=== PATIENT | female | born 1990 | race Caucasian/White ===

== ENCOUNTER 2019-02-10 10:56 | Emergency (ER) | payer BC, OTHER ==
[~2019-02-10] VITALS: Ht 175.3 cm; Wt 83.5 kg
--- OUTSIDE RECORDS SUMMARY | 2019-02-10 11:02 | XMS REPORT | Continuity of Care Document ---
Author Organization Unknown Address Unknown Allergies Active Description Code Type Severity Reaction Onset Reported/Identified Relationship to Patient Clinical Status Yes No known allergies Drug N/A N/A Medications There is no data. Problems Date Dx Coded Attending Type Code Diagnosis Diagnosed By 02/26/2014 VANDANA BECKHAM 623.5 NONINFECT VAG LEUKORRHEA Procedures Code [place] [address] VIET, DNA, DIR PROBE 02/26/2014 99662 NELSON VAG, DNA, DIR PROBE 02/26/2014 27529 TRICHOMONAS VAGIN, DIR PROBE 02/26/2014 Results Test Result Range BACT VAGINOSIS ITIS PANEL - 02/26/14 00:00 BVCAND NOT DETECTED NOT DETECTED BVGARD NOT DETECTED NOT DETECTED BVTRIC NOT DETECTED NOT DETECTED Encounters ACCT No. Visit Date/Time Discharge Status Pt. Type Provider Facility Loc./Unit Complaint [id number] 02/05/2019 13:55:31 02/05/2019 23:59:59 DIS Outpatient Kala Hoff [facility] [id number] 01/30/2019 17:56:50 02/02/2019 15:15:00 DIS Inpatient JO ANN ORDNOEZ [facility] R[facility] OB Induction [id number] 01/29/2019 14:15:00 01/29/2019 23:59:59 DIS Outpatient JO ANN ORDONEZ [facility] [id number] 01/29/2019 13:25:55 01/29/2019 14:15:00 DIS Outpatient JO ANN ORDONEZ [facility] OB Gestational Hypertension [id number] 01/24/2019 08:24:59 01/24/2019 23:59:59 DIS Outpatient VANDANA BECKHAM [facility] [id number] 01/22/2019 09:42:59 01/22/2019 23:59:59 DIS Outpatient JO ANN ORDONEZ [facility] [id number] 01/22/2019 09:15:57 01/22/2019 23:59:59 DIS Outpatient JO ANN ORDONEZ [facility] gest htn [id number] 01/15/2019 13:45:00 01/15/2019 23:59:59 DIS Outpatient Kavya Kala [facility] [id number] 01/15/2019 00:00:00 01/15/2019 23:59:59 CLS Outpatient JO ANN ORDONEZ [facility] [id number] 01/15/2019 12:55:13 01/15/2019 13:55:00 DIS Outpatient JO ANN ORDONEZ [facility] OB nst [id number] 01/08/2019 21:57:09 01/08/2019 23:59:59 CLS Outpatient JO ANN ORDONEZ [facility] OB NST [id number] 01/08/2019 15:42:45 01/08/2019 23:59:59 DIS Outpatient JO ANN ORDONEZ [facility] [id number] 01/08/2019 15:14:48 01/08/2019 23:59:59 DIS Outpatient JO ANN ORDONEZ [facility] RAD check growth [id number] 01/01/2019 13:15:00 01/01/2019 23:59:59 DIS Outpatient JO ANN ORDONEZ [facility] [id number] 01/01/2019 00:00:00 01/01/2019 23:59:59 CLS Outpatient JO ANN ORDONEZ [facility] [id number] 01/01/2019 12:21:03 01/01/2019 13:20:00 DIS Outpatient JO ANN ORDONEZ [facility] OB htn [id number] 12/25/2018 09:35:29 12/25/2018 23:59:59 DIS Outpatient JO ANN ORDONEZ [facility] [id number] 12/11/2018 10:13:45 12/11/2018 23:59:59 DIS Outpatient Kala Hoff [facility] [id number] 12/11/2018 09:48:03 12/11/2018 23:59:59 DIS Outpatient JO ANN ORDONEZ [facility] RAD check growth [id number] 11/28/2018 08:20:24 11/28/2018 23:59:59 DIS Outpatient BHAVANI VANDANA Hyatt [facility] lab [id number] 11/28/2018 08:19:25 11/28/2018 23:59:59 DIS Outpatient BHAVANI VANDANA Hyatt [facility] [id number] 11/20/2018 13:23:28 11/20/2018 23:59:59 DIS Outpatient JO ANN ORDONEZ [facility] [id number] 11/17/2018 07:56:59 11/17/2018 23:59:59 DIS Outpatient JO ANN ORDONEZ [facility] LAB Lab [id number] 11/13/2018 14:24:32 11/13/2018 23:59:59 DIS Outpatient JO ANN ORDONEZ [facility] [id number] 11/07/2018 14:53:55 11/07/2018 23:59:59 DIS Outpatient Brendan Andrea [facility] RAD soa; palpitations [id number] 11/06/2018 11:39:15 11/06/2018 23:59:59 DIS Outpatient Kala Hoff [facility] [id number] 10/30/2018 13:02:14 10/30/2018 23:59:59 CLS Preadmit Brendan Andrea [facility] REN CR palpitations [id number] 10/30/2018 12:48:23 10/30/2018 23:59:59 DIS Outpatient Brendan Andrea [facility] REN RT EKG / Holter Monitor [id number] 10/30/2018 10:21:05 10/30/2018 23:59:59 DIS Outpatient JO ANN ORDONEZ [facility] [id number] 10/30/2018 09:39:06 10/30/2018 23:59:59 DIS Outpatient JO ANN ORDONEZ [facility] finish survey [id number] 10/07/2018 12:41:27 10/07/2018 23:59:59 DIS Outpatient Kala Hoff [facility] [id number] 10/01/2018 13:19:55 10/01/2018 23:59:59 DIS Outpatient JO ANN ORDONEZ [facility] [id number] 10/01/2018 12:44:13 10/01/2018 23:59:59 DIS Outpatient JO ANN ORDONEZ [facility] RAD survey [id number] 09/03/2018 16:27:27 09/03/2018 23:59:59 DIS Outpatient JO ANN ORDONEZ [facility] [id number] 08/06/2018 15:59:24 08/06/2018 23:59:59 DIS Outpatient JO ANN ORDONEZ [facility] [id number] 07/22/2018 16:32:30 07/22/2018 23:59:59 DIS Outpatient VANDANA BECKHAM [facility] RAD check tones [id number] 07/22/2018 15:55:54 07/22/2018 23:59:59 DIS Outpatient VANDANA BECKHAM [facility] [id number] 07/10/2018 14:32:30 07/10/2018 23:59:59 DIS Outpatient Kala Hoff [facility] [id number] 07/10/2018 14:02:52 07/10/2018 23:59:59 DIS Outpatient Kala Hoff [facility] intake [id number] 01/14/2018 13:47:21 01/14/2018 23:59:59 DIS Outpatient JOSÉ LUISREJIY Lonnie [facility] [id number] 12/20/2017 16:29:15 12/20/2017 23:59:59 DIS Outpatient VANDANA BECKHAM [facility] lab [id number] 12/20/2017 16:00:00 12/20/2017 23:59:59 DIS Outpatient VANDANA BECKHAM [facility] [id number] 05/17/2017 08:02:42 05/17/2017 23:59:59 DIS Outpatient BENJAMIN CROFT [facility] [id number] 09/05/2016 15:24:45 09/05/2016 23:59:59 CLS Outpatient JO ANN ORDONEZ [facility] [id number] 02/26/2014 00:00:00 02/26/2014 00:00:00 DIS Outpatient VANDANA BECKHAM [facility] JOSÉ LUIS [id number] 04/29/2018 02:01:15 Document Registration [id number] 09/05/2016 15:38:47 Document Registration [id number] 08/16/2013 00:00:00 Document Registration
[2019-02-10 11:38] LABS: BACTERIA,URINE FEW /HPF; BILIRUBIN,URINE NEGATIVE (NEGATIVE); CLARITY,URINE CLEAR; COLOR,URINE RED; GLUCOSE, URINE (UA) NEGATIVE (NEGATIVE); KETONES,URINE NEGATIVE (NEGATIVE); LEUKOCYTE ESTERASE ,URINE 2+ (NEGATIVE); NITRITE,URINE NEGATIVE (NEGATIVE); PH,URINE 8.5 (5-9); PROTEIN,URINE NEGATIVE (NEGATIVE); UROBILINOGEN,URINE 0.2 MG/DL (NORMAL); WBC,URINE 25-50 /HPF
[2019-02-10 12:13] LABS: BILIRUBIN,URINE NEGATIVE (NEGATIVE); CLARITY,URINE CLEAR; COLOR,URINE YELLOW; GLUCOSE, URINE (UA) NEGATIVE (NEGATIVE); KETONES,URINE NEGATIVE (NEGATIVE); NITRITE,URINE NEGATIVE (NEGATIVE); PROTEIN,URINE NEGATIVE (NEGATIVE)
[2019-02-10 12:14] LABS: BACTERIA,URINE FEW /HPF; LEUKOCYTE ESTERASE ,URINE TRACE (NEGATIVE); UROBILINOGEN,URINE 0.2 MG/DL (NORMAL)
[2019-02-10] MEDS ORDERED: CEPH500T PO (12:38)
--- NOTE | 2019-02-10 12:38 | ED GU-Female ---
General Chief Complaint: - Urinary Stated Complaint: PT THINK SHE HAS UTI - JUST HAD BABY ON Nursing Triage Note: Patient arrived by private vehicle with significant other, with chief complaint of possible UTI and pelvic pain. Pt stated it started yesterday. Pt had a baby on the . She stated its in pelvic area. When asking if it kennedy she stated yes and hurts. Nursing Sepsis Screen: No Definite Risk History of Present Illness Date Seen by Provider: February 10, 2019 Time Seen by Provider: 12:45 Initial Comments This is a 29 y/o , approx 10 days post- from a uncomplicated vaginal delivery. Required Labetalol during but otherwise uncomplicated. Concerned about a UTI. Reports urinary urgency/frequency since yesterday. Has had UTIs before and this feels the same. Some vaginal bleeding that is improving. no abdominal pain. no fever, no nausea, no vomiting. Is . Allergies and Home Medications Allergies Coded Allergies: No Known Drug Allergies (Unverified , 02/10/19) Home Medications Cephalexin 500 Mg Tablet, 500 MG PO BID Prescribed by: JOJO CORNEJO on 02/10/19 1238 Patient Home Medication List Home Medication List Reviewed: Yes Review of Systems Review of Systems Constitutional: No chills, No fever, No weakness Respiratory: no symptoms reported Cardiovascular: no symptoms reported Gastrointestinal: No abdominal pain, No nausea, No vomiting Genitourinary: frequency; denies flank pain; urgency Musculoskeletal: no symptoms reported Skin: No pruritus, No rash Psychiatric/Neurological: No Symptoms Reported All Other Systemes Reviewed Negative Unless Noted: Yes Past Rolpppe-Vavbks-Zxwpss Hx Patient Social History Alcohol Use: Denies Use Recreational Drug Use: No Smoking Status: Never a Smoker 2nd Hand Smoke Exposure: No Recent Foreign Travel: No Contact w/Someone Who Travel: No Recent Infectious Disease Expo: No Recent Hopitalizations: No Physical Abuse: No Sexual Abuse: No Mistreated: No Fear: No Seasonal Allergies Seasonal Allergies: No Past Medical History Surgeries: No Respiratory: No Cardiac: No Neurological: No Genitourinary: No Gastrointestinal: No Musculoskeletal: No Endocrine: No HEENT: No Cancer: No Psychosocial: No Integumentary: No Blood Disorders: No Physical Exam Vital Signs Vital Signs - First Documented 02/10/19 11:00 Temp 97.5 Pulse 83 Resp 18 B/P (MAP) 115/86 (96) Pulse Ox 98 O2 Delivery Room Air Capillary Refill : Less Than 3 Seconds Height, Weight, BMI Height: 5'9.00" Weight: 184lbs. 0oz. 83.726939sa; BMI Method:Stated General Appearance: WD/WN, no apparent distress HEENT: PERRL/EOMI Neck: full range of motion Cardiovascular: regular rate, rhythm, no edema, no JVD, no murmur Respiratory: lungs clear, normal breath sounds, no respiratory distress, no accessory muscle use Gastrointestinal: non tender, soft Extremities: normal range of motion Neurologic/Psychiatric: alert, normal mood/affect, oriented x 3 Skin: normal color, warm/dry Progress/Results/Core Measures Suspected Sepsis Recent Fever Within 48 Hours: No Infection Criteria Present: Suspected New Infection New/Unexplained Altered Menta: No Sepsis Screen: No Definite Risk SIRS Temperature:97.5 Pulse: 83 Respiratory Rate: 18 Blood Pressure 115 /86 Mean: 96 Results/Orders Lab Results Laboratory Tests Test 02/10/19 11:00 02/10/19 12:00 Range/Units Urine Color RED H YELLOW Urine Clarity CLEAR CLEAR Urine pH 8.5 7.0 5-9 Urine Specific [place] <1.005 <1.005 1.016-1.022 Urine Protein NEGATIVE NEGATIVE NEGATIVE Urine Glucose (UA) NEGATIVE NEGATIVE NEGATIVE Urine Ketones NEGATIVE NEGATIVE NEGATIVE Urine Nitrite NEGATIVE NEGATIVE NEGATIVE Urine Bilirubin NEGATIVE NEGATIVE NEGATIVE Urine Urobilinogen 0.2 0.2 NORMAL MG/DL Urine Leukocyte Esterase 2+ H TRACE NEGATIVE Urine RBC (Auto) 3+ H 3+ H NEGATIVE Urine RBC 5-10 H 2-5 H /HPF Urine WBC 25-50 H 10-25 H /HPF Urine Squamous Epithelial Cells 10-25 H 2-5 /HPF Urine Renal Epithelial Cells 5-10 2-5 /HPF Urine Crystals NONE NONE /LPF Urine Bacteria FEW H FEW H /HPF Urine Casts NONE NONE /LPF Urine Mucus NEGATIVE NEGATIVE /LPF Urine Culture Indicated YES YES My Orders Orders - JOJO CORNEJO DO Ua Culture If Indicated (02/10/19 11:27) Urine Culture (02/10/19 11:00) Ua Culture If Indicated (02/10/19 11:52) Urine Culture (02/10/19 12:00) Cephalexin Capsule (Keflex Capsule) (02/10/19 12:45) Medications Given in ED Current Medications Medications Dose Ordered Sig/Sal Route Start Time Stop Time Status Last Admin Dose Admin Cephalexin HCl 500 mg ONCE ONCE PO 02/10/19 12:45 02/10/19 12:46 DC 02/10/19 12:44 500 MG Vital Signs/I&O 02/10/19 11:00 Temp 97.5 Pulse 83 Resp 18 B/P (MAP) 115/86 (96) Pulse Ox 98 O2 Delivery Room Air Capillary Refill : Less Than 3 Seconds Blood Pressure Mean: 96 Progress Note : Progress Note Initial urine sample contaminated. Repeat with +UTI. Pt reports symptoms consistent with previous UTIs. Will place on Keflex. Denies any abdominal pain/fever. Reporting improving vaginal bleeding. ER return precautions given. pt verbalized understanding. All questions answered. Departure Impression Primary Impression: Urinary tract infection Disposition: HOME, SELF-CARE Condition: Stable Departure-Patient Inst. Decision time for Depature: 12:37 Referrals: JO ANN ORDONEZ MD (PCP/Family) Primary Care Physician Patient Instructions: Urinary Tract Infection, Adult (DC) Add. Discharge Instructions: Please take the entire course of antibiotics. Read the attached handouts. RETURN TO THE ER IF YOUR SYMPTOMS WORSEN OR YOU HAVE ANY OTHER CONCERNS. All discharge instructions reviewed with patient and/or family. Voiced understanding. Scripts Cephalexin (Cephalexin) 500 Mg Tablet 500 MG PO BID for 5 Days, #10 TAB 0 Refills Prov: JOJO CORNEJO DO 02/10/19 JOJO CORNEJO DO February 10, 2019 12:38
[2019-02-10 12:45] VITALS: BP 118/86
[2019-02-10] MEDS ORDERED: CEPHALEXIN 250 MG (KEFLEX) CAP PO ONE (12:45)
== END 2019-02-10 12:45 | disposition home or self-care (01) ==
LOC: ER FS 10:58
DX: O86.20 Urinary tract infection following delivery, unspecified (principal)
CPT/HCPCS: 81000; 87088; 99283